=== PATIENT | male | born 2000 | race Caucasian/White ===

== ENCOUNTER 2021-09-10 14:47 | Emergency (ER) | payer OTHER, MEDICAID ==
[~2021-09-10] VITALS: Ht 182.9 cm; Wt 100.0 kg
[2021-09-10] MEDS ORDERED: BACITRACIN ZINC OINT UDPKT TOP ONE (16:00)
[2021-09-10] MEDS ORDERED: TETANUS, DIPHTHERIA, PERTUSSIS VAC/PF 0.5ML (>10YR OLD) IM ONE (16:00)
[2021-09-10 17:40] VITALS: BP 127/78
== END 2021-09-10 17:42 | disposition home or self-care (01) ==
LOC: ER 14:47
DX: S90.812A Abrasion, left foot, initial encounter (principal); V49.49XA Driver injured in collision with other motor vehicles in traffic accident, initial encounter; Y93.89 Activity, other specified; Y92.89 Other specified places as the place of occurrence of the external cause; Y99.8 Other external cause status
CPT/HCPCS: 73630; 99283